=== PATIENT | male | born 1965 | race Caucasian/White ===

== ENCOUNTER → 2019-10-13 | Outpatient (CLI) | payer OTHER | END | disposition home or self-care (01) | LOC: CFH 09:11 | PROVIDERS: ATTEND Family Medicine | DX: E78.00 Pure hypercholesterolemia, unspecified (principal); E78.1 Pure hyperglyceridemia | CPT/HCPCS: 75571 ==

== ENCOUNTER 2021-07-11 10:46 | Outpatient (CLI) | payer OTHER | END 2021-07-11 23:59 | disposition home or self-care (01) | LOC: CARD 10:46 | PROVIDERS: ATTEND Family Medicine | DX: I48.91 Unspecified atrial fibrillation (principal) | CPT/HCPCS: 93225; 93226 ==